=== PATIENT | female | born 1945 | race Caucasian/White ===

== ENCOUNTER 2016-08-04 14:58 | Emergency (ER) | payer MEDICARE ==
--- NOTE | 2016-08-04 15:44 | ED NURSING NOTES ---
Clinical Report - Nurses [facility] [place] [address] 08/04/2016 15:02 Patient: YANI DAVISON TRIAGE Triage time 15:24. Acuity: LEVEL 4. Chief Complaint: SKIN RASH and TENDER AREA and . under left breast radiating to left back. --15:32 Meeta Desai R.N. 15:24 08/04/16. BP: 129/51 taken on the left arm, while sitting. HR: 67. RR: 16. O2 saturation: 97%. Temp: 97.7 F. Pain level now: 12/23. --15:32 Meeta Desai R.N. Weight: 68 kg stated. Height/Length: 62 inches Per Patient. BMI: 27.4. --15:29 Meeta Desai R.N. Medications Vicodin prn . --15:26 Meeta Desai R.N. Metoprolol 25 mg daily. --15:28 Meeta Desai R.N. Tlenol prn. --15:28 Meeta Desai R.N. Apirin 81 mg 3 times per week. --15:29 Meeta Desai R.N. Atorvastatin 20 mg nightly. --15:29 Meeta Desai R.N. Lvothyroxine 50 mcg each morning. --15:29 Meeta Desai R.N. Losartan 25 mg daily. --15:29 Meeta Desai R.N. Allergies No Known Drug Allergy. --15:26 Meeta Desai R.N. History Arrived by private vehicle. Historian: patient. Reported as (under left breast wrapping round to back). Onset. (4 days ago). It is described as itchy, burning and painful. ( vessicles with clear fluid, some excoriated). 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 SOCIAL HX: Never smoker. No alcohol use or drug use. --15:32 Meeta Desai R.N. PROBLEMS: Hypercholesterolemia. Hypothyroid. Hypertension. --15:30 Meeta Desai R.N. TB Hx . --15:31 Meeta Desai R.N. ADDITIONAL SURGERIES: Cholecystectomy. . --15:30 Meeta Desai R.N. Interventions ID band on patient. To treatment room. --15:32 Meeta Desai R.N. PHYSICAL ASSESSMENT Ambulatory to room. GENERAL / NEURO / PSYCH: Alert. Appears in pain. Oriented X 4. HEENT: Pupils equal, round and reactive to light. RESPIRATORY: Respirations not labored. CVS: Pulses within normal limits. GI / : Abdomen nontender. SKIN: Skin is warm and dry. Multiple skin lesions with erythema and tenderness- Under left breast, wrapping close to axilla. --15:32 Meeta Desai R.N. NURSING PROGRESS NOTES Reassurance given. Call light placed in reach. Bed placed in lowest position. --15:33 Meeta Desai R.N. 15:45 08/04/2016 Zofran ODT (Ondansetron) PO Oral Disintegrating Tablets 4 mg given. --15:50 Meeta Desai R.N. 15:50 08/04/2016 Dilaudid (HYDROmorphone HCl PF) IM 1 mg given. Given in the right gluteus grabiel. Allergies verified, confirmed 5 rights and sedative warning given to the patient and patient's family. --15:50 Meeta Desai R.N. DISPOSITION / DISCHARGE Departure time: 1559. Condition at departure: unchanged and stable. Discharge instructions provided and reviewed with the patient and spouse. Reviewed warnings (do not drive on narcotic pain meds. take all Rx as prescribed.). Reviewed medication(s) side effects and course information. Prescription(s) given to the patient. Reviewed referral to a primary care physician. Patient and spouse verbalized understanding. Written instructions provided in Lebanese. The patient was discharged by the physician assistant professor of physics. She was discharged home and accompanied by spouse. She left the Emergency Department ambulatory and via private vehicle. Family member driving. --16:00 Meeta Desai R.N. 15:59 08/04/16. BP: 129/51. HR: 67. RR: 18. O2 saturation: 97%. Pain level now: 12/23. --16:00 Meeta Desai R.N. Locked/Released at 08/04/2016 16:01 by Metea Desai R.N.
--- NOTE | 2016-08-04 15:44 | ED ORDER SUMMARY ---
..... Patient: YANI DAVISON OrderSheet [facility] VisitID: [id number] [address] [place] [address] 70y, F Registration Date/Time: 08/04/2016 ORDER SHEET Weight: 68.0 kg (stated) Allergies: No Known Drug Allergy GENERAL ORDERS: MEDICATION ORDERS: Dilaudid IM 1 mg (HIGH ALERT MEDICATION, NOW) (15:37 08/04/2016 HBivens A.R.N.P.) (Ack 15:50 SStone R.N.) (15:50 SStone R.N.) Zofran ODT PO 4 mg (NOW) (15:38 08/04/2016 HBivens A.R.N.P.) (Ack 15:50 SStone R.N.) (15:50 SStone R.N.) IV FLUIDS: ORDER SHEET NOTES: [Electronically signed by Emily RiceR.N.P. (15:58 08/04/2016)] [Electronically signed by Meeta Desai R.N. (16:01 08/04/2016)] [Electronically locked/signed by Meeta Desai R.N. (16:08/04/2016)]
--- NOTE | 2016-08-04 15:44 | ED NURSING NOTES ---
Clinical Report - Nurses [facility] [place] [address] [address] [place] [address] 08/04/2016 15:02 Patient: YANI DAVISON TRIAGE Triage time 15:24. Acuity: LEVEL 4. Chief Complaint: SKIN RASH and TENDER AREA and . under left breast radiating to left back. --15:32 Meeta Desai R.N. 15:24 08/04/16. BP: 129/51 taken on the left arm, while sitting. HR: 67. RR: 16. O2 saturation: 97%. Temp: 97.7 F. Pain level now: 12/23. --15:32 Meeta Desai R.N. Weight: 68 kg stated. Height/Length: 62 inches Per Patient. BMI: 27.4. --15:29 Meeta Desai R.N. Medications Vicodin prn . --15:26 Meeta Desai R.N. Metoprolol 25 mg daily. --15:28 Meeta Desai R.N. Tlenol prn. --15:28 Meeta Desai R.N. Apirin 81 mg 3 times per week. --15:29 Meeta Desai R.N. Atorvastatin 20 mg nightly. --15:29 Meeta Desai R.N. Lvothyroxine 50 mcg each morning. --15:29 Meeta Desai R.N. Losartan 25 mg daily. --15:29 Meeta Desai R.N. Allergies No Known Drug Allergy. --15:26 Meeta Desai R.N. History Arrived by private vehicle. Historian: patient. Reported as (under left breast wrapping round to back). Onset. (4 days ago). It is described as itchy, burning and painful. ( vessicles with clear fluid, some excoriated). 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 SOCIAL HX: Never smoker. No alcohol use or drug use. --15:32 Meeta Desai R.N. PROBLEMS: Hypercholesterolemia. Hypothyroid. Hypertension. --15:30 Meeta Desai R.N. TB Hx . --15:31 Meeta Desai R.N. ADDITIONAL SURGERIES: Cholecystectomy. . --15:30 Meeta Desai R.N. Interventions ID band on patient. To treatment room. --15:32 Meeta Desai R.N. PHYSICAL ASSESSMENT Ambulatory to room. GENERAL / NEURO / PSYCH: Alert. Appears in pain. Oriented X 4. HEENT: Pupils equal, round and reactive to light. RESPIRATORY: Respirations not labored. CVS: Pulses within normal limits. GI / : Abdomen nontender. SKIN: Skin is warm and dry. Multiple skin lesions with erythema and tenderness- Under left breast, wrapping close to axilla. --15:32 Meeta Desai R.N. NURSING PROGRESS NOTES Reassurance given. Call light placed in reach. Bed placed in lowest position. --15:33 Meeta Desai R.N. 15:45 08/04/2016 Zofran ODT (Ondansetron) PO Oral Disintegrating Tablets 4 mg given. --15:50 Meeta Desai R.N. 15:50 08/04/2016 Dilaudid (HYDROmorphone HCl PF) IM 1 mg given. Given in the right gluteus grabiel. Allergies verified, confirmed 5 rights and sedative warning given to the patient and patient's family. --15:50 Meeta Desai R.N. DISPOSITION / DISCHARGE Departure time: 1559. Condition at departure: unchanged and stable. Discharge instructions provided and reviewed with the patient and spouse. Reviewed warnings (do not drive on narcotic pain meds. take all Rx as prescribed.). Reviewed medication(s) side effects and course information. Prescription(s) given to the patient. Reviewed referral to a primary care physician. Patient and spouse verbalized understanding. Written instructions provided in Welsh. The patient was discharged by the physician pastoral assistant. She was discharged home and accompanied by spouse. She left the Emergency Department ambulatory and via private vehicle. Family member driving. --16:00 Meeta Desai R.N. 15:59 08/04/16. BP: 129/51. HR: 67. RR: 18. O2 saturation: 97%. Pain level now: 12/23. --16:00 Meeta Desai R.N. Locked/Released at 08/04/2016 16:01 by Meeta Desai R.N.
--- NOTE | 2016-08-04 15:44 | ED CLINICAL REPORT ---
Clinical Report - Physicians/Mid Levels [facility] [address] [place] [address] 08/04/2016 15:02 Patient: YANI DAVISON Time Seen: 15:27; initial patient contact, initial documentation, patient care assumed. Arrived- By private vehicle. Historian- patient. HISTORY OF PRESENT ILLNESS Chief Complaint: SKIN RASH. This started today and is still present and worsening. It is described as painful and burning. It has been located on the left chest and back. A possible cause has been identified (had shingle outbreak once before, thinks it is shingles again). Similar symptoms previously: Once, milder. Recent medical care: The patient was seen recently in a clinic. ( had sharp, burning, pain on the L side Tuesday, went to clinic because she thought pain was due to heart attack, no rash at that time, just the pain, work up done, heart ok, given some hydrocodone, but it doesn't help much, has 4 pills left). REVIEW OF SYSTEMS No fever or difficulty breathing. All systems otherwise negative, except as recorded above. PAST HISTORY See nurses notes. PROBLEMS: Hypercholesterolemia. Hypothyroid. Hypertension. --15:30 Meeta Desai R.N. TB Hx . --15:31 Meeta Desai R.N. ADDITIONAL SURGERIES: Cholecystectomy. . --15:30 Meeta Desai R.N. SOCIAL HISTORY Never smoker. No alcohol use or drug use. No recent travel. Is a local resident. FAMILY HISTORY Negative. ADDITIONAL NOTES The nursing notes have been reviewed with agreement regarding the chief complaint, HPI, ROS, PMH and patient medications and allergies. PHYSICAL EXAM Vital Signs: 08/04/2016 15:24 BP: 129/51. HR: 67. RR: 16. O2 saturation: 97%. Temp: 97.7 F. Pain level now: 8/10. Have been reviewed as normal and appear to be correct. Appearance: Alert. Oriented X3. No acute distress. Eyes: Pupils equal, round and reactive to light. Conjunctivae and eyelids normal. Neck: Neck supple. CVS: Normal heart rate and rhythm. Heart sounds normal. Respiratory: No respiratory distress. Breath sounds normal. Chest nontender. Abdomen: Nontender. No organomegaly. Skin: Skin warm and dry. Normal skin color. Rash present. Normal skin turgor. Moderate, erythematous, vesicular skin rash with an erythematous base on the chest and back- unilateral vesicular erythema rash noted around trunk on L side around 4-6 rib spaces. Extremities: Normal external inspection. Extremities nontender. Neuro: Oriented X 3. No motor deficit. No sensory deficit. PROGRESS AND PROCEDURES Patient counseled in person regarding the patient's stable condition and diagnosis. 15:44. Differential Diagnosis: Other possible considerations: shingles, urticaria, hives, dematitis. Above considerations are based on history and physical exam. Differential diagnosis was discussed with patient. Disposition: Discharged home in good and improved condition (15:44). Condition: good and stable. CLINICAL IMPRESSION Herpes zoster with postherpetic neuralgia. INSTRUCTIONS Warnings: GENERAL WARNINGS: Return or contact your physician immediately if your condition worsens or changes unexpectedly, if not improving as expected, or if other problems arise. Specifically return if problem worsens. Prescription Medications: Zofran 4 mg: Take 1 orally every six hours as needed for nausea/vomiting. Dispense ten (10). No refills. Substitution is permissible. [place] 5 mg / 325 mg tablets: take 1 orally every 6 hours as needed for pain. Dispense twenty (20). No refill. Motrin 800 mg tablets: take 1 tablet orally every 8 hours as needed for pain. Dispense thirty (30). No refills. Substitution is permissible. Acyclovir 800 mg: Take 1 orally every 4 hours (five times daily) for 10 days. No refill. Follow-up: Follow up with your doctor in about five days even if well. Call for an appointment. Summary of care provided to patient. Understanding of the discharge instructions verbalized by patient. (Electronically signed by Emily Rice A.R.N.P. 08/04/2016 15:58)
--- NOTE | 2016-08-04 15:44 | ED ORDER SUMMARY ---
..... Patient: YANI DAVISON OrderSheet [facility] VisitID: [id number] [address] [place] [address] 70y, F Registration Date/Time: 08/04/2016 ORDER SHEET Weight: 68.0 kg (stated) Allergies: No Known Drug Allergy GENERAL ORDERS: MEDICATION ORDERS: Dilaudid IM 1 mg (HIGH ALERT MEDICATION, NOW) (15:37 08/04/2016 HBivens A.R.N.P.) (Ack 15:50 SStone R.N.) (15:50 SStone R.N.) Zofran ODT PO 4 mg (NOW) (15:38 08/04/2016 HBivens A.R.N.P.) (Ack 15:50 SStone R.N.) (15:50 SStone R.N.) IV FLUIDS: ORDER SHEET NOTES: [Electronically signed by Emily RiceR.N.P. (15:58 08/04/2016)] [Electronically signed by Meeta Desai R.N. (16:01 08/04/2016)] [Electronically locked/signed by Meeta Desai R.N. (16:08/04/2016)]
--- NOTE | 2016-08-04 16:01 | ED DISCHARGE INSTRUCTIONS ---
Patient: YANI DAVISON General Instructions Formerly [facility] VisitID: [id number] [place] [address] 70y, F Registration Date/Time: 08/04/2016 Herpes zoster with postherpetic neuralgia. INSTRUCTIONS Warnings: GENERAL WARNINGS: Return or contact your physician immediately if your condition worsens or changes unexpectedly, if not improving as expected, or if other problems arise. Specifically return if problem worsens. Prescription Medications: Zofran 4 mg: Take 1 orally every six hours as needed for nausea/vomiting. Dispense ten (10). No refills. Substitution is permissible. [place] 5 mg / 325 mg tablets: take 1 orally every 6 hours as needed for pain. Dispense twenty (20). No refill. Motrin 800 mg tablets: take 1 tablet orally every 8 hours as needed for pain. Dispense thirty (30). No refills. Substitution is permissible. Acyclovir 800 mg: Take 1 orally every 4 hours (five times daily) for 10 days. No refill. Follow-up: Follow up with your doctor in about five days even if well. Call for an appointment. Summary of care provided to patient. Understanding of the discharge instructions verbalized by patient. ADDITIONAL INFORMATION Shingles Anyone who has had chicken pox may get shingles later in life. It is caused by the same virus that has remained dormant (asleep) in your body. Shingles usually occurs in adults over the age of 50 or those with lowered immunity (cancer treatment, prolonged steroid use, HIV or AIDS). It starts as a tingling patch of skin on one side of the body. During the first several days small painful blisters appear in this area. However, unlike chicken pox the rash does not spread to the rest of the body. The blister fluid contains the virus. Exposure to shingles cannot cause shingles. However, it can cause chicken pox in anyone who has never had chicken pox before. The contagious period ends when all blisters have crusted over (usually about two weeks after the illness begins). Scarring may occur where the blisters appear. Sometimes there is continued sensitivity and pain in the involved patch of skin for months after the infection (neuralgia). Persons older than 50 or those with a weakened immune system may be treated with antiviral medicines to reduce pain, shorten the illness and prevent neuralgia. Zostavax is a vaccine that can help prevent shingles or make it less painful. It is recommended for adults over the age of 60 who have had chicken pox in the past, but not shingles. Adults over 60 who have had neither chicken pox nor shingles can prevent both diseases with a Varicella vaccine. Home Care: You may use acetaminophen (Tylenol) or ibuprofen (Motrin, Advil) to control pain, unless another medicine was prescribed. [NOTE: If you have chronic liver or kidney disease or ever had a stomach ulcer or GI bleeding, talk with your doctor before using these medicines.] (Aspirin should never be used in anyone under 18 years of age who is ill with a fever. It may cause severe liver damage.) To relieve itching and pain, make a solution of cool water mixed with cornstarch, baking soda, Aveeno Oatmeal, or Domeboro powder (available without a prescription). Apply the solution as a compress to the area. This will soothe the skin. Calamine or Caladryl lotion may help. Oral Benadryl (diphenhydramine) is an antihistamine available at drug and grocery stores. Unless a prescription antihistamine was given, Benadryl may be used to reduce itching if large areas of the skin are involved. Use lower doses during the daytime and higher doses at bedtime since the drug may make you sleepy. [NOTE: Do not use Benadryl if you have glaucoma or if you are a man with trouble urinating due to an enlarged prostate.] Claritin (loratidine) is an antihistamine that causes less drowsiness and is a good alternative for daytime use. Wash skin with soap and water to keep rash free of infection. Trim fingernails to prevent scratching. Scratching the sores may leave scars. Stay home from work or school until all blisters have formed a crust and you are no longer contagious. Follow Up with your doctor or as directed by our staff if the above measures do not bring relief. GET PROMPT MEDICAL ATTENTION if any of the following occur: Headache or stiff neck Increasing drowsiness, confusion or bizarre behavior Cough with trouble breathing or fast breathing (over 25 breaths per minute) Pain, redness or swelling of a joint Fever of 100.4F (38C) or higher, or as directed by your healthcare provider Eye pain or changes in vision or sores that appear near the eye Signs of skin infection (yellow or white drainage from the sores, increasing redness or pain) Weakness or numbness of an arm or leg Difficulty speaking, swallowing or walking Seizure Ondansetron Oral disintegrating tablet What is this medicine? ONDANSETRON (on CHIQUIS se meena) is used to treat nausea and vomiting caused by chemotherapy. It is also used to prevent or treat nausea and vomiting after surgery. How should I use this medicine? These tablets are made to dissolve in the mouth. Do not try to push the tablet through the foil backing. With dry hands, peel away the foil backing and gently remove the tablet. Place the tablet in the mouth and allow it to dissolve, then swallow. While you may take these tablets with water, it is not necessary to do so. Talk to your mix technician regarding the use of this medicine in children. Special care may be needed. What side effects may I notice from receiving this medicine? Side effects that you should report to your doctor or health critical care registered nurse as soon as possible: allergic reactions like skin rash, itching or hives, swelling of the face, lips, or tongue breathing problems dizziness fast or irregular heartbeat feeling faint or lightheaded, falls fever and chills swelling of the hands and feet tightness in the chest Side effects that usually do not require medical attention (report to your doctor or health critical care registered nurse if they continue or are bothersome): constipation or diarrhea headache What may interact with this medicine? Do not take this medicine with any of the following medications: -apomorphine -cisapride -dofetilide -dronedarone -pimozide -thioridazine -ziprasidone This medicine may also interact with the following medications: -carbamazepine -phenytoin -rifampicin -tramadol -other medicines that prolong the QT interval (cause an abnormal heart rhythm) What if I miss a dose? If you miss a dose, take it as soon as you can. If it is almost time for your next dose, take only that dose. Do not take double or extra doses. Where should I keep my medicine? Keep out of the reach of children. Store between 2 and 30 degrees C (36 and 86 degrees F). Throw away any unused medicine after the expiration date. What should I tell my health care provider before I take this medicine? They need to know if you have any of these conditions: heart disease history of irregular heartbeat liver disease low levels of magnesium or potassium in the blood an unusual or allergic reaction to ondansetron, granisetron, other medicines, foods, dyes, or preservatives or trying to get breast-feeding What should I watch for while using this medicine? Check with your doctor or health critical care registered nurse as soon as you can if you have any sign of an allergic reaction. Hydrocodone Bitartrate, Acetaminophen Oral tablet What is this medicine? ACETAMINOPHEN; HYDROCODONE (a set a VAMSI olga fen; suzy droe KOE done) is a pain reliever. It is used to treat mild to moderate pain. How should I use this medicine? Take this medicine by mouth. Swallow it with a full glass of water. Follow the directions on the prescription label. If the medicine upsets your stomach, take the medicine with food or milk. Do not take more than you are told to take. Talk to your mix technician regarding the use of this medicine in children. This medicine is not approved for use in children. What side effects may I notice from receiving this medicine? Side effects that you should report to your doctor or health critical care registered nurse as soon as possible: allergic reactions like skin rash, itching or hives, swelling of the face, lips, or tongue breathing problems confusion feeling faint or lightheaded, falls stomach pain yellowing of the eyes or skin Side effects that usually do not require medical attention (report to your doctor or health critical care registered nurse if they continue or are bothersome): nausea, vomiting stomach upset What may interact with this medicine? alcohol antihistamines isoniazid medicines for depression, anxiety, or psychotic disturbances medicines for sleep muscle relaxants naltrexone narcotic medicines (opiates) for pain phenobarbital ritonavir tramadol What if I miss a dose? If you miss a dose, take it as soon as you can. If it is almost time for your next dose, take only that dose. Do not take double or extra doses. Where should I keep my medicine? Keep out of the reach of children. This medicine can be abused. Keep your medicine in a safe place to protect it from theft. Do not share this medicine with anyone. Selling or giving away this medicine is dangerous and against the law. Store at room temperature between 15 and 30 degrees C (59 and 86 degrees F). Protect from light. Keep container tightly closed. Throw away any unused medicine after the expiration date. Discard unused medicine and used packaging carefully. Pets and children can be harmed if they find used or lost packages. What should I tell my health care provider before I take this medicine? They need to know if you have any of these conditions: brain tumor Crohn's disease, inflammatory bowel disease, or ulcerative colitis drink more than 3 alcohol-containing drinks per day drug abuse or addiction head injury heart or circulation problems kidney disease or problems going to the bathroom liver disease lung disease, asthma, or breathing problems an unusual or allergic reaction to acetaminophen, hydrocodone, other opioid analgesics, other medicines, foods, dyes, or preservatives or trying to get breast-feeding What should I watch for while using this medicine? Tell your doctor or health critical care registered nurse if your pain does not go away, if it gets worse, or if you have new or a different type of pain. You may develop tolerance to the medicine. Tolerance means that you will need a higher dose of the medicine for pain relief. Tolerance is normal and is expected if you take the medicine for a long time. Do not suddenly stop taking your medicine because you may develop a severe reaction. Your body becomes used to the medicine. This does NOT mean you are addicted. Addiction is a behavior related to getting and using a drug for a non-medical reason. If you have pain, you have a medical reason to take pain medicine. Your doctor will tell you how much medicine to take. If your doctor wants you to stop the medicine, the dose will be slowly lowered over time to avoid any side effects. You may get drowsy or dizzy when you first start taking the medicine or change doses. Do not drive, use machinery, or do anything that may be dangerous until you know how the medicine affects you. Stand or sit up slowly. There are different types of narcotic medicines (opiates) for pain. If you take more than one type at the same time, you may have more side effects. Give your health care provider a list of all medicines you use. Your doctor will tell you how much medicine to take. Do not take more medicine than directed. Call emergency for help if you have problems breathing. The medicine will cause constipation. Try to have a bowel movement at least every 2 to 3 days. If you do not have a bowel movement for 3 days, call your doctor or health critical care registered nurse. Too much acetaminophen can be very dangerous. Do not take Tylenol (acetaminophen) or medicines that contain acetaminophen with this medicine. Many non-prescription medicines contain acetaminophen. Always read the labels carefully. Ibuprofen Oral tablet What is this medicine? IBUPROFEN (eye BYOO proe fen) is a non-steroidal anti-inflammatory drug (NSAID). It is used for dental pain, fever, headaches or migraines, osteoarthritis, rheumatoid arthritis, or painful monthly periods. It can also relieve minor aches and pains caused by a cold, flu, or sore throat. How should I use this medicine? Take this medicine by mouth with a glass of water. Follow the directions on the prescription label. Take this medicine with food if your stomach gets upset. Try to not lie down for at least 10 minutes after you take the medicine. Take your medicine at regular intervals. Do not take your medicine more often than directed. A special MedGuide will be given to you by the pharmacist with each prescription and refill. Be sure to read this information carefully each time. Talk to your mix technician regarding the use of this medicine in children. Special care may be needed. What side effects may I notice from receiving this medicine? Side effects that you should report to your doctor or health critical care registered nurse as soon as possible: allergic reactions like skin rash, itching or hives, swelling of the face, lips, or tongue black or bloody stools, blood in the urine or in vomit breathing problems changes in vision chest pain general ill feeling or flu-like symptoms nausea or vomiting redness, blistering, peeling or loosening of the skin, including inside the mouth slurred speech or weakness on one side of the body stomach pain unexplained weight gain or swelling unusually weak or tired yellowing of eyes or skin Side effects that usually do not require medical attention (report to your doctor or health critical care registered nurse if they continue or are bothersome): constipation or diarrhea dizziness gas or heartburn stomach upset What may interact with this medicine? Do not take this medicine with any of the following medications: cidofovir ketorolac methotrexate pemetrexed This medicine may also interact with the following medications: alcohol aspirin diuretics lithium other drugs for inflammation like prednisone warfarin What if I miss a dose? If you miss a dose, take it as soon as you can. If it is almost time for your next dose, take only that dose. Do not take double or extra doses. Where should I keep my medicine? Keep out of the reach of children. Store at room temperature between 15 and 30 degrees C (59 and 86 degrees F). Keep container tightly closed. Throw away any unused medicine after the expiration date. What should I tell my health care provider before I take this medicine? They need to know if you have any of these conditions: asthma cigarette smoker drink more than 3 alcohol containing drinks a day heart disease or circulation problems such as heart failure or leg edema (fluid retention) high blood pressure kidney disease liver disease stomach bleeding or ulcers an unusual or allergic reaction to ibuprofen, aspirin, other NSAIDS, other medicines, foods, dyes, or preservatives or trying to get breast-feeding What should I watch for while using this medicine? Tell your doctor or healthcare professional if your symptoms do not start to get better or if they get worse. This medicine does not prevent heart attack or stroke. In fact, this medicine may increase the chance of a heart attack or stroke. The chance may increase with longer use of this medicine and in people who have heart disease. If you take aspirin to prevent heart attack or stroke, talk with your doctor or health critical care registered nurse. Do not take other medicines that contain aspirin, ibuprofen, or naproxen with this medicine. Side effects such as stomach upset, nausea, or ulcers may be more likely to occur. Many medicines available without a prescription should not be taken with this medicine. This medicine can cause ulcers and bleeding in the stomach and intestines at any time during treatment. Ulcers and bleeding can happen without warning symptoms and can cause . To reduce your risk, do not smoke cigarettes or drink alcohol while you are taking this medicine. You may get drowsy or dizzy. Do not drive, use machinery, or do anything that needs mental alertness until you know how this medicine affects you. Do not stand or sit up quickly, especially if you are an older patient. This reduces the risk of dizzy or fainting spells. This medicine can cause you to bleed more easily. Try to avoid damage to your teeth and gums when you brush or floss your teeth. Acyclovir Oral tablet What is this medicine? ACYCLOVIR (ay ALLIE ralph) is an antiviral medicine. It is used to treat or prevent infections caused by certain kinds of viruses. Examples of these infections include herpes and shingles. This medicine will not cure herpes. How should I use this medicine? Take this medicine by mouth with a glass of water. Follow the directions on the prescription label. You can take it with or without food. Take your medicine at regular intervals. Do not take your medicine more often than directed. Take all of your medicine as directed even if you think your are better. Do not skip doses or stop your medicine early. Talk to your mix technician regarding the use of this medicine in children. While this drug may be prescribed for selected conditions, precautions do apply. What side effects may I notice from receiving this medicine? Side effects that you should report to your doctor or health critical care registered nurse as soon as possible: allergic reactions like skin rash, itching or hives, swelling of the face, lips, or tongue chest pain confusion, hallucinations, tremor dark urine increased sensitivity to the sun redness, blistering, peeling or loosening of the skin, including inside the mouth seizures trouble passing urine or change in the amount of urine unusual bleeding or bruising, or pinpoint red spots on the skin unusually weak or tired yellowing of the eyes or skin Side effects that usually do not require medical attention (report to your doctor or health critical care registered nurse if they continue or are bothersome): diarrhea fever headache nausea, vomiting stomach upset What may interact with this medicine? probenecid What if I miss a dose? If you miss a dose, take it as soon as you can. If it is almost time for your next dose, take only that dose. Do not take double or extra doses. Where should I keep my medicine? Keep out of the reach of children. Store at room temperature between 15 and 25 degrees C (59 and 77 degrees F). Throw away any unused medicine after the expiration date. What should I tell my health care provider before I take this medicine? They need to know if you have any of these conditions: kidney disease an unusual or allergic reaction to acyclovir, ganciclovir, valacyclovir, other medicines, foods, dyes, or preservatives or trying to get breast-feeding What should I watch for while using this medicine? Tell your doctor or health critical care registered nurse if your symptoms do not improve. This medicine works best when started very early in the course of an infection. Begin treatment at the first signs of infection. Drink 6 to 8 glasses of water or fluids every day while you are taking this medicine. This will help prevent side effects. You can still pass chickenpox, shingles, or herpes to another person even while you are taking this medicine. Avoid contact with others as directed. Genital herpes is a sexually transmitted disease. Talk to your doctor about how to stop the spread of infection. You have been given the following additional information: Herpes Zoster Ondansetron Oral disintegrating tablet Hydrocodone Bitartrate, Acetaminophen Oral tablet Ibuprofen Oral tablet Acyclovir Oral tablet (Electronically signed by Emily Rice A.R.N.P. 08/04/2016 15:58)
--- NOTE | 2016-08-04 16:02 | ED MED RECONCILIATION SUMMARY ---
Patient: YANI DAVISON Medication Reconciliation Report [facility] VisitID: [id number] [address] [place] [address] 70y, F Registration Date/Time: 08/04/2016 Weight: 68.0 kg Height/Length: 62 in. BMI: 27.4 ALLERGIES: No Known Drug Allergy The patient's Home Medications are listed below: THE FOLLOWING MEDICATIONS NEED TO BE RECONCILED: Apirin 81 mg 3 times per week Atorvastatin 20 mg nightly Losartan 25 mg daily Lvothyroxine 50 mcg each morning Metoprolol 25 mg daily Tlenol prn Vicodin prn The source(s) of the original Home Medication information: Not obtained. The following Medications were given to the patient in the Emergency Department: Dilaudid [IM] IM 1 mg, administered: 08/04/2016 3:50:00 PM Zofran ODT [PO] PO 4 mg, administered: 08/04/2016 3:45:00 PM The following Medications were prescribed to the patient: Zofran 4 mg: Take 1 orally every six hours as needed for nausea/vomiting. Dispense ten (10). No refills. Substitution is permissible. -- Emily Rice, A.R.N.P. [place] 5 mg / 325 mg tablets: take 1 orally every 6 hours as needed for pain. Dispense twenty (20). No refill. -- Emily Rice A.R.N.P. Motrin 800 mg tablets: take 1 tablet orally every 8 hours as needed for pain. Dispense thirty (30). No refills. Substitution is permissible. -- Emily Rice A.R.N.P. Acyclovir 800 mg: Take 1 orally every 4 hours (five times daily) for 10 days. No refill. -- Emily Rice A.R.N.P.
--- NOTE | 2016-08-04 16:02 | ED MED RECONCILIATION SUMMARY ---
Patient: YANI DAVISON Medication Reconciliation Report [facility] VisitID: [id number] [address] [place] [address] 70y, F Registration Date/Time: 08/04/2016 Weight: 68.0 kg Height/Length: 62 in. BMI: 27.4 ALLERGIES: No Known Drug Allergy The patient's Home Medications are listed below: THE FOLLOWING MEDICATIONS NEED TO BE RECONCILED: Apirin 81 mg 3 times per week Atorvastatin 20 mg nightly Losartan 25 mg daily Lvothyroxine 50 mcg each morning Metoprolol 25 mg daily Tlenol prn Vicodin prn The source(s) of the original Home Medication information: Not obtained. The following Medications were given to the patient in the Emergency Department: Dilaudid [IM] IM 1 mg, administered: 08/04/2016 3:50:00 PM Zofran ODT [PO] PO 4 mg, administered: 08/04/2016 3:45:00 PM The following Medications were prescribed to the patient: Zofran 4 mg: Take 1 orally every six hours as needed for nausea/vomiting. Dispense ten (10). No refills. Substitution is permissible. -- Emily Rice, A.R.N.P. [place] 5 mg / 325 mg tablets: take 1 orally every 6 hours as needed for pain. Dispense twenty (20). No refill. -- Emily Rice A.R.N.P. Motrin 800 mg tablets: take 1 tablet orally every 8 hours as needed for pain. Dispense thirty (30). No refills. Substitution is permissible. -- Emily Rice A.R.N.P. Acyclovir 800 mg: Take 1 orally every 4 hours (five times daily) for 10 days. No refill. -- Emily Rice A.R.N.P.
--- NOTE | 2016-08-04 16:02 | ED MAR SUMMARY ---
..... Medication Administration Record [facility] [address] [place] [address] Patient: YANI DAVISON Visit ID: [id number] 70y, F Weight: 68.0 kg Height/Length: 62 in BMI: 27.4 ALLERGIES: No Known Drug Allergy Given 15:45 08/04/2016 Meeta Desai R.N. Medication Administered: ZOFRAN ODT [PO] (ONDANSETRON), Dose: 4 mg Oral Disintegrating Tablets PO. Medication Ordered: Zofran ODT PO 4 mg (NOW). Given 15:50 08/04/2016 Meeta Desai, RFarazN. Medication Administered: DILAUDID [IM] (HYDROMORPHONE HCL PF), Dose: 1 mg IM. Medication Ordered: Dilaudid IM 1 mg (HIGH ALERT MEDICATION, NOW).
--- NOTE | 2016-08-04 16:02 | ED MAR SUMMARY ---
..... Medication Administration Record Merged With [facility] [address] [place] [address] Patient: YANI DAVISON Visit ID: [id number] 70y, F Weight: 68.0 kg Height/Length: 62 in BMI: 27.4 ALLERGIES: No Known Drug Allergy Given 15:45 08/04/2016 Meeta Desai R.N. Medication Administered: ZOFRAN ODT [PO] (ONDANSETRON), Dose: 4 mg Oral Disintegrating Tablets PO. Medication Ordered: Zofran ODT PO 4 mg (NOW). Given 15:50 08/04/2016 Meeta Desai, RFarazN. Medication Administered: DILAUDID [IM] (HYDROMORPHONE HCL PF), Dose: 1 mg IM. Medication Ordered: Dilaudid IM 1 mg (HIGH ALERT MEDICATION, NOW).
== END 2016-08-04 15:56 | disposition home or self-care (01) ==
LOC: ED SRH 14:58
DX: B02.29 Other postherpetic nervous system involvement (principal); I10 Essential (primary) hypertension; Z79.82 Long term (current) use of aspirin; Z79.899 Other long term (current) drug therapy